=== PATIENT | female | born 2000 | race Caucasian/White ===

== ENCOUNTER 2023-07-29 18:41 | Emergency (ER) | payer OTHER ==
[~2023-07-29] VITALS: Wt 82.1 kg
[2023-07-29 19:25] LABS: BASO % 0.6 % (0.0-1.0); EOS # 0.1 10*3/uL (0.0-0.4); EOS % 1.1 % (1.0-4.0); HEMATOCRIT 36.4 % (37.0-47.0); LYMPH # 1.6 10*3/uL (1.3-4.4); MEAN CELL VOLUME 88.6 fl (81.0-99.0); MEAN CORPUSCULAR HGB 28.7 pg (27.0-31.0); MEAN CORPUSCULAR HGB CONC 32.4 g/dl (33.0-37.0); MEAN PLATELET VOLUME 9.7 fl (9.6-12.3); MONO # 0.5 10*3/uL (0.1-1.0); NEUT # 3.3 10*3/uL (2.3-7.9); NEUT % 60.1 % (47.0-73.0); PLATELET COUNT AUTOMATED 206 10*3/uL (130-400); RED BLOOD COUNT 4.11 10*6/uL (4.10-5.10); RED CELL DISTRI WIDTH 14.1 % (0-14.5); WHITE BLOOD COUNT 5.5 10*3/uL (4.8-10.8)
[2023-07-29 19:39] LABS: ACT PARTIAL THROMBO TIME 25.9 SECONDS (20.0-32.1)
[2023-07-29 19:45] LABS: ALKALINE PHOSPHATASE 87 U/L (46-116); BUN 5 mg/dl (9-23); CHLORIDE 109 mmol/L (98-107); POTASSIUM 3.9 mmol/L (3.4-5.1); SGPT/ALT 15 U/L (5-49); TOTAL PROTEIN 6.6 gm/dL (6.0-8.0)
[2023-07-29 20:12] LABS: BILIRUBIN Negative (Negative); BLOOD Negative (Negative); CLARITY Cloudy (Clear); COLOR Yellow (Yellow); GLUCOSE Negative (Negative); KETONE Trace (Negative); LEUKO ESTERASE Trace (Negative); NITRITE Negative (Negative); PH 6.5 (4.5-8.0)
[2023-07-29 20:22] LABS: URINE AMPHETAMINES Negative (1000ng/ml); URINE BARBITURATES Negative (200ng/ml); URINE BENZODIAZEPINES Negative (200ng/ml); URINE CANNABINOIDS (THC) Negative (50ng/ml); URINE COCAINE Negative (300ng/ml); URINE METHADONE Negative (300ng/ml); URINE OPIATES Negative (300ng/ml); URINE PHENCYCLIDINE Negative (25ng/ml)
[2023-07-29 20:25] LABS: BACTERIA 1+; EPITHELIAL CELLS 16-20; MUCOUS 2+; RBC 0-2 rbc/hpf (0-2)
== END 2023-07-29 20:44 | disposition home or self-care (01) ==
LOC: ED 18:41
PROVIDERS: Nurse Practitioner
DX: R56.9 Unspecified convulsions (principal); Z88.0 Allergy status to penicillin; Z88.1 Allergy status to other antibiotic agents

== ENCOUNTER 2023-08-14 21:02 | Emergency (ER) | payer OTHER ==
[2023-08-14] MEDS ORDERED: Midazolam Hydrochloride 2 MG/2 ML VIAL IV ONE (21:10)
[2023-08-14 21:32] LABS: BASO % 0.4 % (0.0-1.0); EOS # 0.1 10*3/uL (0.0-0.4); EOS % 1.1 % (1.0-4.0); LYMPH # 1.6 10*3/uL (1.3-4.4); LYMPH % 34.6 % (27.0-41.0); MEAN CORPUSCULAR HGB 28.6 pg (27.0-31.0); MEAN CORPUSCULAR HGB CONC 32.5 g/dl (33.0-37.0); MEAN PLATELET VOLUME 9.9 fl (9.6-12.3); MONO # 0.5 10*3/uL (0.1-1.0); MONO % 11.4 % (3.0-9.0); NEUT # 2.4 10*3/uL (2.3-7.9); NEUT % 52.3 % (47.0-73.0); PLATELET COUNT AUTOMATED 214 10*3/uL (130-400); RED BLOOD COUNT 4.09 10*6/uL (4.10-5.10); RED CELL DISTRI WIDTH 14.3 % (0-14.5); WHITE BLOOD COUNT 4.7 10*3/uL (4.8-10.8)
[2023-08-14 21:44] LABS: ACT PARTIAL THROMBO TIME 25.6 SECONDS (20.0-32.1)
[2023-08-14 21:50] LABS: BILIRUBIN Negative (Negative); BLOOD Negative (Negative); CLARITY Clear (Clear); COLOR Dark Yellow (Yellow); GLUCOSE Negative (Negative); KETONE Trace (Negative); LEUKO ESTERASE Negative (Negative); NITRITE Negative (Negative); SPECIFIC GRAVITY >= 1.030 (1.001-1.030)
[2023-08-14 21:53] LABS: ALKALINE PHOSPHATASE 76 U/L (46-116); BUN 6 mg/dl (9-23); CHLORIDE 106 mmol/L (98-107); LIPASE 52 U/L (12-53); POTASSIUM 3.9 mmol/L (3.4-5.1); SGPT/ALT 60 U/L (5-49); TOTAL PROTEIN 6.5 gm/dL (6.0-8.0)
[2023-08-14 21:55] LABS: ETHYL ALCOHOL < 3.0 mg/dl (<3)
[2023-08-14 21:58] LABS: URINE AMPHETAMINES Negative (1000ng/ml); URINE BARBITURATES Negative (200ng/ml); URINE BENZODIAZEPINES Negative (200ng/ml); URINE CANNABINOIDS (THC) Negative (50ng/ml); URINE COCAINE Negative (300ng/ml); URINE METHADONE Negative (300ng/ml); URINE OPIATES Negative (300ng/ml); URINE PHENCYCLIDINE Negative (25ng/ml)
[2023-08-14 21:59] LABS: MUCOUS 3+; RBC 0-2 rbc/hpf (0-2); WBC 0-2 wbc/hpf (0-5)
== END 2023-08-15 00:40 | disposition home or self-care (01) ==
LOC: ED 21:02
PROVIDERS: Internal Medicine
DX: R56.9 Unspecified convulsions (principal); Z88.0 Allergy status to penicillin; Z88.1 Allergy status to other antibiotic agents; Z91.040 Latex allergy status

== ENCOUNTER 2023-09-11 15:58 | Emergency (ER) | payer OTHER ==
[2023-09-11] MEDS ORDERED: diphenhydrAMINE hydrochloride 50 MG/ML VIAL IV ONE (16:05)
[2023-09-11] MEDS ORDERED: DEXTROSE 50% 25 GM/50 ML SYR IV ONE (16:10)
[2023-09-11] MEDS ORDERED: MIDODRINE HCL10 MG PO (16:14)
[2023-09-11] MEDS ORDERED: FLUDROCORTISON0.1 MG PO (16:15)
[2023-09-11] MEDS ORDERED: VIMPAT200 MG PO (16:17)
[2023-09-11] MEDS ORDERED: TRI-SPRINTEC T1 EACH PO (16:17)
[2023-09-11] MEDS ORDERED: TOPROL XL25 MG PO (16:18)
[2023-09-11] MEDS ORDERED: BENZTROPINE 1 MG (16:18)
[2023-09-11] MEDS ORDERED: TRAZODONE100 MG PO (16:19)
[2023-09-11] MEDS ORDERED: LAMICTAL25 MG PO (16:19)
[2023-09-11 16:28] LABS: BASO % 0.5 % (0.0-1.0); EOS % 0.7 % (1.0-4.0); HEMATOCRIT 34.2 % (37.0-47.0); LYMPH # 1.3 10*3/uL (1.3-4.4); LYMPH % 31.7 % (27.0-41.0); MEAN CELL VOLUME 89.3 fl (81.0-99.0); MEAN CORPUSCULAR HGB CONC 32.5 g/dl (33.0-37.0); MEAN PLATELET VOLUME 9.6 fl (9.6-12.3); MONO # 0.2 10*3/uL (0.1-1.0); MONO % 4.4 % (3.0-9.0); NEUT # 2.6 10*3/uL (2.3-7.9); NEUT % 62.5 % (47.0-73.0); PLATELET COUNT AUTOMATED 188 10*3/uL (130-400); RED BLOOD COUNT 3.83 10*6/uL (4.10-5.10); RED CELL DISTRI WIDTH 14.3 % (0-14.5); WHITE BLOOD COUNT 4.1 10*3/uL (4.8-10.8)
[2023-09-11 16:48] LABS: ALKALINE PHOSPHATASE 63 U/L (46-116); BUN < 5 mg/dl (9-23); CHLORIDE 108 mmol/L (98-107); SGPT/ALT 17 U/L (5-49)
[2023-09-11 17:29] LABS: BILIRUBIN Negative (Negative); BLOOD Negative (Negative); CLARITY Cloudy (Clear); COLOR Yellow (Yellow); GLUCOSE 2+ (Negative); KETONE Negative (Negative); LEUKO ESTERASE 1+ (Negative); NITRITE Positive (Negative); SPECIFIC GRAVITY 1.015 (1.001-1.030)
[2023-09-11 17:36] LABS: BACTERIA 3+; WBC 51-100 wbc/hpf (0-5)
[2023-09-11] MEDS ORDERED: Ceftriaxone Sodium 1 GM/10 ML SYR IV ONE (17:55)
[2023-09-11] MEDS ORDERED: OMNICEF300 MG PO (18:01)
== END 2023-09-11 18:51 | disposition home or self-care (01) ==
LOC: ED 15:58
PROVIDERS: Internal Medicine
DX: N39.0 Urinary tract infection, site not specified (principal); G24.09 Other drug induced dystonia; E16.2 Hypoglycemia, unspecified; T43.4X5A Adverse effect of butyrophenone and thiothixene neuroleptics, initial encounter; Z88.0 Allergy status to penicillin; Z88.1 Allergy status to other antibiotic agents; Z91.040 Latex allergy status; Y92.89 Other specified places as the place of occurrence of the external cause

== ENCOUNTER 2024-01-21 10:30 | Emergency (ER) | payer OTHER ==
[~2024-01-21] VITALS: Ht 170.1 cm; Wt 91.2 kg
[~2024-01-21 10:30] MED LIST: BENZTROPINE 1 MG; FLUDROCORTISON0.1 MG PO; LAMICTAL25 MG PO; MIDODRINE HCL10 MG PO; OMNICEF300 MG PO; TOPROL XL25 MG PO; TRAZODONE100 MG PO; TRI-SPRINTEC T1 EACH PO; VIMPAT200 MG PO
[2024-01-21] MEDS ORDERED: ROSUVASTATIN CA10 MG PO (10:40)
[2024-01-21] MEDS ORDERED: SODIUM CHLORIDE 0.9% 1,000 ML IV ONE (10:40)
[2024-01-21] MEDS ORDERED: MINIPRESS1 M1 PO (10:41)
[2024-01-21] MEDS ORDERED: EFFEXOR XR75 M1 PO (10:42)
[2024-01-21] MEDS ORDERED: FISH OIL EC 1,1 EAC2 PO (10:43)
[2024-01-21] MEDS ORDERED: MELATONIN5 M1 SL (10:44)
[2024-01-21] MEDS ORDERED: MAGNESIUM250 M1 PO (10:45)
[2024-01-21] MEDS ORDERED: HALOPERIDOL5 MG PO (10:45)
[2024-01-21 10:52] LABS: BASO % 0.6 % (0.0-1.0); EOS # 0.1 10*3/uL (0.0-0.4); EOS % 1.5 % (1.0-4.0); HEMATOCRIT 36.6 % (37.0-47.0); MEAN CELL VOLUME 87.6 fl (81.0-99.0); MEAN CORPUSCULAR HGB CONC 30.9 g/dl (33.0-37.0); MEAN PLATELET VOLUME 9.6 fl (9.6-12.3); MONO # 0.6 10*3/uL (0.1-1.0); MONO % 11.6 % (3.0-9.0); NEUT % 62.5 % (47.0-73.0); PLATELET COUNT AUTOMATED 245 10*3/uL (130-400); RED BLOOD COUNT 4.18 10*6/uL (4.10-5.10); RED CELL DISTRI WIDTH 13.6 % (0-14.5); WHITE BLOOD COUNT 4.8 10*3/uL (4.8-10.8)
[2024-01-21 11:13] LABS: BUN 10 mg/dl (9-23); CHLORIDE 107 mmol/L (98-107); POTASSIUM 4.4 mmol/L (3.4-5.1)
[2024-01-21 11:56] LABS: BILIRUBIN Negative (Negative); BLOOD Negative (Negative); CLARITY Clear (Clear); COLOR Yellow (Yellow); GLUCOSE Negative (Negative); KETONE Negative (Negative); LEUKO ESTERASE Negative (Negative); NITRITE Negative (Negative); SPECIFIC GRAVITY 1.015 (1.001-1.030); UROBILINOGEN 0.2 E.U./dl (0.0-1.0)
[2024-01-21 12:16] LABS: BACTERIA TRACE; MUCOUS 1+; RBC 0-2 rbc/hpf (0-2)
== END 2024-01-21 12:32 | disposition home or self-care (01) ==
LOC: ED 10:30
PROVIDERS: Emergency Medicine
DX: R56.9 Unspecified convulsions (principal); F32.A Depression, unspecified; F41.9 Anxiety disorder, unspecified; Z88.0 Allergy status to penicillin; Z88.1 Allergy status to other antibiotic agents; Z91.040 Latex allergy status

== ENCOUNTER 2024-02-10 19:43 | Emergency (ER) | payer OTHER ==
[~2024-02-10] VITALS: Wt 92.5 kg
[~2024-02-10 19:43] MED LIST changes: +EFFEXOR XR75 M1 PO; +FISH OIL EC 1,1 EAC2 PO; +HALOPERIDOL5 MG PO; +MAGNESIUM250 M1 PO; +MELATONIN5 M1 SL; +MINIPRESS1 M1 PO; +ROSUVASTATIN CA10 MG PO
[2024-02-10] MEDS ORDERED: Midazolam Hydrochloride 2 MG/2 ML VIAL IV ONE (19:50)
[2024-02-10] MEDS ORDERED: LACOSAMIDE200 M1 PO (19:52)
[2024-02-10] MEDS ORDERED: BENZTROPINE ME0.5 MG PO (19:53)
[2024-02-10] MEDS ORDERED: HALOPERIDO100 MG/11 IM (19:53)
[2024-02-10] MEDS ORDERED: 24 HOUR ALLER15.8 ML INH (19:54)
[2024-02-10 20:06] LABS: BASO % 0.3 % (0.0-1.0); EOS # 0.1 10*3/uL (0.0-0.4); EOS % 2.1 % (1.0-4.0); HEMATOCRIT 36.7 % (37.0-47.0); MEAN CELL VOLUME 87.8 fl (81.0-99.0); MEAN CORPUSCULAR HGB 26.8 pg (27.0-31.0); MEAN CORPUSCULAR HGB CONC 30.5 g/dl (33.0-37.0); MEAN PLATELET VOLUME 9.2 fl (9.6-12.3); MONO # 0.6 10*3/uL (0.1-1.0); MONO % 9.5 % (3.0-9.0); NEUT # 3.5 10*3/uL (2.3-7.9); NEUT % 56.3 % (47.0-73.0); PLATELET COUNT AUTOMATED 211 10*3/uL (130-400); RED BLOOD COUNT 4.18 10*6/uL (4.10-5.10); RED CELL DISTRI WIDTH 14.1 % (0-14.5); WHITE BLOOD COUNT 6.1 10*3/uL (4.8-10.8)
[2024-02-10 20:26] LABS: ALKALINE PHOSPHATASE 117 U/L (46-116); BUN 9 mg/dl (9-23); CHLORIDE 106 mmol/L (98-107); POTASSIUM 4.2 mmol/L (3.4-5.1); SGPT/ALT 35 U/L (5-49); TOTAL PROTEIN 7.1 gm/dL (6.0-8.0)
[2024-02-10 20:28] LABS: ETHYL ALCOHOL < 3.0 mg/dl (<3)
[2024-02-10 21:02] LABS: BILIRUBIN Negative (Negative); BLOOD Negative (Negative); CLARITY Clear (Clear); COLOR Yellow (Yellow); GLUCOSE Negative (Negative); KETONE Negative (Negative); LEUKO ESTERASE Trace (Negative); NITRITE Negative (Negative); UROBILINOGEN 0.2 E.U./dl (0.0-1.0)
[2024-02-10 21:09] LABS: URINE AMPHETAMINES Negative (1000ng/ml); URINE BARBITURATES Negative (200ng/ml); URINE BENZODIAZEPINES Negative (200ng/ml); URINE CANNABINOIDS (THC) Negative (50ng/ml); URINE COCAINE Negative (300ng/ml); URINE METHADONE Negative (300ng/ml); URINE OPIATES Negative (300ng/ml); URINE PHENCYCLIDINE Negative (25ng/ml)
[2024-02-10 21:21] LABS: BACTERIA 1+; MUCOUS TRACE; RBC 0-2 rbc/hpf (0-2)
[2024-02-10] MEDS ORDERED: Ciprofloxacin Hydrochloride 500 MG TAB PO ONE (21:25)
[2024-02-10] MEDS ORDERED: CIPRO500 MG PO (21:32)
== END 2024-02-10 21:37 | disposition home or self-care (01) ==
LOC: ED 19:43
PROVIDERS: Internal Medicine
DX: N39.0 Urinary tract infection, site not specified (principal); R41.82 Altered mental status, unspecified; Z88.0 Allergy status to penicillin; Z88.1 Allergy status to other antibiotic agents; Z91.040 Latex allergy status; Z79.899 Other long term (current) drug therapy

== ENCOUNTER 2024-02-18 08:14 | Emergency (ER) | payer OTHER ==
[~2024-02-18] VITALS: Ht 160 cm; Wt 100.3 kg
[~2024-02-18 08:14] MED LIST changes: +24 HOUR ALLER15.8 ML INH; +BENZTROPINE ME0.5 MG PO; +CIPRO500 MG PO; +HALOPERIDO100 MG/11 IM; +LACOSAMIDE200 M1 PO
[2024-02-18 08:37] LABS: BASO % 0.4 % (0.0-1.0); EOS # 0.1 10*3/uL (0.0-0.4); EOS % 2.7 % (1.0-4.0); HEMATOCRIT 35.7 % (37.0-47.0); MEAN CELL VOLUME 87.3 fl (81.0-99.0); MEAN CORPUSCULAR HGB 26.7 pg (27.0-31.0); MEAN CORPUSCULAR HGB CONC 30.5 g/dl (33.0-37.0); MEAN PLATELET VOLUME 8.9 fl (9.6-12.3); MONO # 0.6 10*3/uL (0.1-1.0); PLATELET COUNT AUTOMATED 199 10*3/uL (130-400); RED BLOOD COUNT 4.09 10*6/uL (4.10-5.10); RED CELL DISTRI WIDTH 14.2 % (0-14.5); WHITE BLOOD COUNT 5.1 10*3/uL (4.8-10.8)
[2024-02-18 08:55] LABS: BILIRUBIN Negative (Negative); BLOOD Negative (Negative); CLARITY Clear (Clear); COLOR Yellow (Yellow); GLUCOSE Negative (Negative); KETONE Negative (Negative); LEUKO ESTERASE Trace (Negative); NITRITE Negative (Negative); PH 6.5 (4.5-8.0); UROBILINOGEN 0.2 E.U./dl (0.0-1.0)
[2024-02-18 09:02] LABS: ALKALINE PHOSPHATASE 117 U/L (46-116); BUN 9 mg/dl (9-23); CHLORIDE 104 mmol/L (98-107); POTASSIUM 3.9 mmol/L (3.4-5.1); SGPT/ALT 48 U/L (5-49); TOTAL PROTEIN 6.8 gm/dL (6.0-8.0)
[2024-02-18 09:29] LABS: BACTERIA 2+; RBC 0-2 rbc/hpf (0-2)
[2024-02-18 09:30] LABS: MUCOUS TRACE
[2024-02-18 09:31] LABS: YEAST TRACE
== END 2024-02-18 10:44 | disposition home or self-care (01) ==
LOC: ED 08:14
PROVIDERS: Emergency Medicine
DX: R56.9 Unspecified convulsions (principal); Z88.0 Allergy status to penicillin; Z88.1 Allergy status to other antibiotic agents; Z91.040 Latex allergy status; Z79.899 Other long term (current) drug therapy

== ENCOUNTER 2024-02-19 15:27 | Emergency (ER) | payer OTHER ==
[~2024-02-19] VITALS: Wt 99.8 kg
[2024-02-19] MEDS ORDERED: diphenhydrAMINE hydrochloride 50 MG/ML VIAL IV ONE (15:35)
[2024-02-19 15:49] LABS: BASO % 0.4 % (0.0-1.0); EOS # 0.1 10*3/uL (0.0-0.4); EOS % 1.6 % (1.0-4.0); HEMATOCRIT 38.4 % (37.0-47.0); MEAN CELL VOLUME 87.9 fl (81.0-99.0); MEAN CORPUSCULAR HGB 26.8 pg (27.0-31.0); MEAN CORPUSCULAR HGB CONC 30.5 g/dl (33.0-37.0); MEAN PLATELET VOLUME 8.9 fl (9.6-12.3); MONO # 0.6 10*3/uL (0.1-1.0); NEUT # 3.5 10*3/uL (2.3-7.9); PLATELET COUNT AUTOMATED 231 10*3/uL (130-400); RED BLOOD COUNT 4.37 10*6/uL (4.10-5.10); RED CELL DISTRI WIDTH 14.2 % (0-14.5); WHITE BLOOD COUNT 5.6 10*3/uL (4.8-10.8)
[2024-02-19 16:15] LABS: ALKALINE PHOSPHATASE 127 U/L (46-116); BUN 6 mg/dl (9-23); CHLORIDE 105 mmol/L (98-107); POTASSIUM 4.1 mmol/L (3.4-5.1); SGPT/ALT 61 U/L (5-49); TOTAL PROTEIN 7.3 gm/dL (6.0-8.0)
[2024-02-19 16:20] LABS: BETA-HCG, QUANT < 3.0 mIU/mL (3-10)
[2024-02-19 17:04] LABS: BILIRUBIN Negative (Negative); BLOOD Negative (Negative); CLARITY Clear (Clear); COLOR Yellow (Yellow); GLUCOSE Negative (Negative); KETONE Negative (Negative); LEUKO ESTERASE Negative (Negative); NITRITE Negative (Negative); SPECIFIC GRAVITY <= 1.005 (1.001-1.030); UROBILINOGEN 0.2 E.U./dl (0.0-1.0)
[2024-02-19 17:10] LABS: URINE AMPHETAMINES Negative (1000ng/ml); URINE BARBITURATES Negative (200ng/ml); URINE BENZODIAZEPINES Positive (200ng/ml); URINE CANNABINOIDS (THC) Negative (50ng/ml); URINE COCAINE Negative (300ng/ml); URINE METHADONE Negative (300ng/ml); URINE OPIATES Negative (300ng/ml); URINE PHENCYCLIDINE Negative (25ng/ml)
[2024-02-19 17:37] LABS: EPITHELIAL CELLS 0-2; WBC 0-2 wbc/hpf (0-5)
[2024-02-20] MEDS ORDERED: Melatonin 5 MG TABLET PO PRN (02:00)
[2024-02-20] MEDS ORDERED: HALOPERIDOL DECANOATE 100 MG/ML AMP IM SCH (02:00)
[2024-02-20] MEDS ORDERED: TEMAZEPAM 15 MG CAP PO PRN (06:10)
[2024-02-20] MEDS ORDERED: BISACODYL 5 MG TAB PO PRN (06:10)
[2024-02-20] MEDS ORDERED: BISACODYL 10 MG SUPP R PRN (06:10)
[2024-02-20] MEDS ORDERED: Magnesium Hydroxide 30 ML UDC PO PRN (06:10)
[2024-02-20] MEDS ORDERED: MORPHINE Sulfate 2 MG/ML SYR IV PRN (06:10)
[2024-02-20] MEDS ORDERED: Acetaminophen/Hydrocodone 5 MG/325 MG TABLET PO PRN (06:10)
[2024-02-20] MEDS ORDERED: Ondansetron Hydrochloride 4 MG/2 ML VIAL IV PRN (06:10)
[2024-02-20] MEDS ORDERED: BUDESONIDE 0.5 MG AMP NEB SCH (06:50)
[2024-02-20] MEDS ORDERED: FLUDROCORTISONE ACETATE 0.1 MG TAB PO SCH (10:00)
[2024-02-20] MEDS ORDERED: BENZTROPINE MESYLATE 1 MG TAB PO SCH (10:00)
[2024-02-20] MEDS ORDERED: LAMOTRIGINE 100 MG TAB PO SCH (10:00)
[2024-02-20] MEDS ORDERED: HALOPERIDOL 5 MG TAB PO SCH (10:00)
[2024-02-20] MEDS ORDERED: Enoxaparin Sodium 40 MG/0.4 ML SYR SC SCH (10:00)
[2024-02-20] MEDS ORDERED: METOPROLOL SUCCINATE XR 25 MG TAB PO SCH (10:00)
[2024-02-20] MEDS ORDERED: Venlafaxine Hydrochloride 75 MG CAP PO SCH (10:00)
[2024-02-20] MEDS ORDERED: LACOSAMIDE 50 MG TAB PO SCH (10:00)
[2024-02-20] MEDS ORDERED: FLUTICASONE PROPIONATE 100 mcg INHALER INH SCH (10:00)
[2024-02-20] MEDS ORDERED: Prazosin Hydrochloride 1 MG CAP PO SCH (22:00)
== END 2024-02-20 18:53 | disposition home or self-care (01) ==
LOC: ED 15:27
PROVIDERS: Internal Medicine
DX: F43.21 Adjustment disorder with depressed mood (principal); R56.9 Unspecified convulsions; D64.9 Anemia, unspecified; R74.01 Elevation of levels of liver transaminase levels; R74.8 Abnormal levels of other serum enzymes; R45.851 Suicidal ideations; G47.00 Insomnia, unspecified; R10.2 Pelvic and perineal pain; Z88.0 Allergy status to penicillin; Z88.1 Allergy status to other antibiotic agents; Z91.040 Latex allergy status

== ENCOUNTER 2025-01-06 01:40 | Emergency (ER) | payer OTHER ==
[~2025-01-06] VITALS: Ht 160 cm; Wt 99.8 kg
[2025-01-06 02:20] LABS: URINE AMPHETAMINES Negative (1000ng/ml); URINE BARBITURATES Negative (200ng/ml); URINE BENZODIAZEPINES Negative (200ng/ml); URINE CANNABINOIDS (THC) Negative (50ng/ml); URINE COCAINE Negative (300ng/ml); URINE METHADONE Negative (300ng/ml); URINE OPIATES Negative (300ng/ml); URINE PHENCYCLIDINE Negative (25ng/ml)
[2025-01-06 02:38] LABS: BASO # 0.0 10*3/uL (0.0-0.1); BASO % 0.4 % (0.0-1.0); EOS # 0.2 10*3/uL (0.0-0.4); EOS % 3.8 % (1.0-4.0); MEAN CELL VOLUME 92.8 fl (81.0-99.0); MEAN CORPUSCULAR HGB 31.5 pg (27.0-31.0); MEAN PLATELET VOLUME 8.7 fl (9.6-12.3); MONO # 0.7 10*3/uL (0.1-1.0); MONO % 12.3 % (3.0-9.0); NEUT # 2.6 10*3/uL (2.3-7.9); NEUT % 45.4 % (47.0-73.0); NUCLEATED RED BLOOD CELL 0.0 % (0.0-0.0); NUCLEATED RED BLOOD CELL 0.0 10*3/uL (0.0-0.0); PLATELET COUNT AUTOMATED 225 10*3/uL (130-400); RED CELL DISTRI WIDTH 13.1 % (0-14.5)
[2025-01-06 03:10] LABS: BUN 6 mg/dl (9-23); ETHYL ALCOHOL < 3.0 mg/dl (<3); SGPT/ALT 34 U/L (5-49)
[2025-01-06] MEDS ORDERED: PHENTERMINE H37.5 M1 PO (11:10)
[2025-01-06] MEDS ORDERED: ACARBOSE25 MG PO (11:10)
[2025-01-06] MEDS ORDERED: Carafate1 GM PO (11:13)
[2025-01-06] MEDS ORDERED: LUBIPROSTONE8 MCG PO (11:13)
[2025-01-06] MEDS ORDERED: HYDROCORTISONE5 MG PO (11:13)
[2025-01-06] MEDS ORDERED: DIVALPROEX SOD500 M1 PO (11:14)
[2025-01-08 10:49] LABS: BILIRUBIN Negative (Negative); BLOOD 3+ (Negative); KETONE Trace (Negative); LEUKO ESTERASE 1+ (Negative); NITRITE Negative (Negative); PH 6.0 (4.5-8.0); SPECIFIC GRAVITY >= 1.030 (1.001-1.030); UROBILINOGEN 1.0 E.U./dl (0.0-1.0)
[2025-01-08 10:55] LABS: CLARITY Turbid (Clear); COLOR Red (Yellow)
[2025-01-08 10:58] LABS: RBC TNTC rbc/hpf (0-2); WBC 21-30 wbc/hpf (0-5)
== END 2025-01-08 13:44 ==
LOC: ED 01:40
PROVIDERS: Emergency Medicine; Student in an Organized Health Care Education/Training Program
DX: S70.312A Abrasion, left thigh, initial encounter (principal); R45.851 Suicidal ideations; R44.0 Auditory hallucinations; Z88.0 Allergy status to penicillin; Z88.1 Allergy status to other antibiotic agents; Z91.040 Latex allergy status; X58.XXXA Exposure to other specified factors, initial encounter; Y93.89 Activity, other specified; Y92.89 Other specified places as the place of occurrence of the external cause; Y99.8 Other external cause status